=== PATIENT | female | born 1980 ===

== ENCOUNTER → 2020-09-25 09:23 | Outpatient (CLI) | payer OTHER, SELFPAY ==
[2020-09-25 12:10] LABS: COVID19 -Nasal RAPID Negative (Negative)
== END ==
PROVIDERS: PCP Student in an Organized Health Care Education/Training Program; Visit Provider Specialist
DX: Z20.822 Contact with and (suspected) exposure to COVID-19 (principal)
CPT/HCPCS: 87635; C9803

== ENCOUNTER 2020-09-26 14:35 | Day surgery (SDC) | payer OTHER, SELFPAY ==
[2020-09-26] VITALS (8 sets, daily range): BP systolic 119–170; BP diastolic 69–92; PULSE 73–125; RESP 14–20; TEMP 36.3–37; O2SAT 95–100; BMI 24.7
--- NOTE | 2020-09-26 | PATH_ITS ---
[facility] Accession Number: [id number] . 01 Material submitted: . PART A: hemorrhoids - LEFT POSTERIOR HEMORRHOID PART B: hemorrhoids - ANTERIOR MIDLINE HEMORRHOID PART C: hemorrhoids - RIGHT LATERAL HEMORRHOID . 01 Clinical history: . SDC . 02 Diagnosis: A. Left Posterior Hemorrhoid, Biopsy: Consistent with hemorrhoidal tissue. . B. Anterior Midline Hemorrhoid, Biopsy: Consistent with hemorrhoidal tissue. . C. Right Lateral Hemorrhoid, Biopsy: Consistent with hemorrhoidal tissue. MRV 10/02/2020 1143 Local . 02 Electronically signed: . Wendi Awad MD, Pathologist NPI- [id number] . 01 Gross description: . Part A: LEFT POSTERIOR HEMORRHOID: Received in formalin is 1 fragment of hancock soft tissue measuring 2.0 x 1.6 x 0.9 cm. Tissue is inked. Specimen is sectioned and submitted in collections representative sections in 1 cassette. Part B: ANTERIOR MIDLINE HEMORRHOID: Received in formalin is 1 fragment of hancock soft tissue measuring 2.0 x 1.2 x 0.7 cm. Tissue is inked. Specimen is sectioned and submitted in collections representative sections in 1 cassette. Part C: RIGHT LATERAL HEMORRHOID: Received in formalin is 1 fragment of hancock soft tissue measuring 2.0 x 1.1 x 0.7 cm. Tissue is inked. Specimen is sectioned and submitted in collections representative sections in 1 cassette. /LACY 09/27/2020 1855 Local . 02 Pathologist provided ICD-10: K64.9 . 02 CPT . 194005, [id number], [id number] Performed at: [address] [facility], [place], [place] [id number] MD Lakhwinder Puentes MD Phone: [phone] Performed at: 02 [facility] [id number] [place] [id number] MD Wendi Awad MD Phone: [phone]
--- NOTE | 2020-09-26 15:42 | PM.PREOP ---
Pre-operative Note COVID-19 COVID-19 status: Negative Result date/Date tested (Pos, Neg/Pending): 09/25/20 Interval Note History & Physical reviewed/Exam performed by Physician: Yes Changes to H&P: No
[2020-09-26] MEDS: LACTATED RINGERS 1,000 ML 42 ML IV (15:48)
--- NOTE | 2020-09-26 16:13 | SUR.OPER ---
Prone on padded OR bed, head in foam head support, gel chest rolls, gel pad under knees, pillow under lower legs, toes free of pressure, arms secured on padded arm boards at <90 degrees abduction. Safety belt at thigh. jacknife
[2020-09-26] MEDS: LIDOCAINE 1% W/EPI 20 ML INJ (16:20)
[2020-09-26] MEDS: DIBUCAINE 1% OINT 28 GM 1 APPLIC TOP (16:21)
--- NOTE | 2020-09-26 16:38 | P.OP_ITS ---
Operative Date/Time/Diagnoses Date of procedure: 09/26/20 Time of procedure: 16:38 Pre-op diagnosis: Internal and external hemorrhoids. Post-op diagnosis: same Procedure & Clinicians Procedure: Three column hemorrhoidectomy Same procedure as scheduled: Yes Indications: Symptomatic internal and external hemorrhoids. External hemorrhoids are quite large. Surgeon: Martinez Sprague Click Yes if Unassisted: Yes Anesthesia Type: General Operative Notes Findings: Large external component smaller internal component to 3 columns of hemorrhoids located in the left lateral posterior right lateral and anterior midline locations. Closure Type: primary Specimen(s): other (Three columns of hemorrhoids) Prosthetic devices, grafts, tissues, transplants, or devices: None Applied: device(s) Estimated Blood Loss (mL): 25 Procedure in detail: Patient is placed christina-knife prone on the operating room table after undergoing general endotracheal anesthesia. She was prepped and draped in the usual fashion. I injected local anesthetic into the perianal tissues located at the visible external hemorrhoids. Digital exam was unremarkable. [place] inserted and circumferential exam performed. Three columns of hemorrhoids were noted in the above-mentioned locations. Beginning in the left posterior lateral location the external tissues were grasped and stretched. A 2 0 Vicryl suture was placed at the head of the hemorrhoidal column internally. This was tied. Incision was made in the anoderm and the hemorrhoidal column lifted off of the underlying sphincter. The hemorrhoid was excised. The defect created was closed with a running 2-0 Vicryl suture. The other 2 hemorrhoidal columns were approached in identical fashion. They were excised in the same manner. Closure of the right lateral hemorrhoidal column was with 2-0 Vicryl running suture line and the anterior midline was with a 3-0 Vicryl running suture line. Meticulous hemostasis was achieved. The in 0 rectum was irrigated and suctioned free of fluid. Nupercainal on Gelfoam was inserted into the anal canal. Dressing was applied. The patient was placed back on her stretcher extubated and taken the recovery area in good condition. Complications: none Post-operative Condition: stable Disposition: PACU
[2020-09-26] MEDS: OXYCODONE IR 5 MG TABLET PO (17:19)
== END 2020-09-26 17:41 | disposition home or self-care (01) ==
PROVIDERS: PCP Student in an Organized Health Care Education/Training Program; Referring Provider Specialist; Visit Provider Specialist
PROC: (CPT 46260; principal; 2020-09-26 15:30)
DX: K64.8 Other hemorrhoids (principal); K64.4 Residual hemorrhoidal skin tags; F41.9 Anxiety disorder, unspecified; F32.9 Major depressive disorder, single episode, unspecified; F43.10 Post-traumatic stress disorder, unspecified
CPT/HCPCS: 46260; 82962; J1100; J1885; J2250; J2405; J2704; J3010